=== PATIENT | male | born 1985 | race Two or more races ===

== ENCOUNTER 2018-08-22 11:25 | Emergency (ER) | payer MEDICAID ==
[~2018-08-22] VITALS: Ht 170.2 cm; Wt 66.0 kg
[2018-08-22 11:30] VITALS: BP 121/68
[2018-08-22] MEDS ORDERED: ACETAMINOPHEN 325MG TABLET PO ONE (12:30)
== END 2018-08-22 13:03 | disposition home or self-care (01) ==
LOC: ER 11:25
DX: S43.401A Unspecified sprain of right shoulder joint, initial encounter (principal); W01.0XXA Fall on same level from slipping, tripping and stumbling without subsequent striking against object, initial encounter; Y93.9 Activity, unspecified; Y92.89 Other specified places as the place of occurrence of the external cause
CPT/HCPCS: 99282